=== PATIENT | male | born 1995 | race Caucasian/White ===

== ENCOUNTER 2019-04-03 09:39 | Outpatient (CLI) | payer OTHER ==
--- NOTE | 2019-04-03 10:37 | RAD ---
XR Lumbar Spine 2 Or 3 View HISTORY: Low Back pain FINDINGS: No fracture, subluxation or bony destruction is seen.
== END 2019-04-03 09:40 | disposition home or self-care (01) ==
LOC: SCSRAD 09:39
PROVIDERS: ATTEND Family Medicine
DX: S32.049S Unspecified fracture of fourth lumbar vertebra, sequela (principal)
CPT/HCPCS: 72100